=== PATIENT | female | born 2000 | race Caucasian/White ===

== ENCOUNTER 2023-08-17 16:06 | Emergency (ER) | payer OTHER ==
--- NOTE | 2023-08-17 16:30 | ED Physician Documentation ---
History of Present Illness - Stated complaint Stated Complaint: SYNCOPE/LOW BS - Chief complaint Chief Complaint: General - History obtained from History obtained from: Patient - Additonal information Additional information: She is a G2, P1 at 34 weeks of . High risk due to gestational diabetes although not on meds and congenital heart problems in the baby. She passed out twice today. Both episodes she had a short premonition of feeling poorly and then passed out. Neither involved in injury. She has had decreased motion but denies pelvic cramping or bleeding or fluid loss. No chest pain or trouble breathing. She checked her blood sugar and was in the 50s and ate some sugar containing food and now that is better. PD PAST MEDICAL HISTORY - Past Medical History Past Medical History: No Cardiovascular: None Respiratory: None Neuro: None Endocrine/Autoimmune: Other GI: None PRIMARY SUBSTANCE ABUSE COUNSELOR: None : None, Chronic bladder infection HEENT: None Psych: None Derm: None - Past Surgical History Past Surgical History: Yes General: Appendectomy - Allergies Allergies/Adverse Reactions: Allergies Allergy/AdvReac Type Severity Reaction Status Date / Time ciprofloxacin [From Cipro] Allergy Hives Verified 08/17/23 16:10 Sulfa (Sulfonamide Allergy Hives Verified 08/17/23 16:10 Antibiotics) - Social History Does the pt smoke?: No Smoking Status: Never smoker Does the pt drink ETOH?: No Does the pt have substance abuse?: No - Immunizations Immunizations are current?: Yes - POLST Patient has POLST: No PD ED PE NORMAL - Vitals Vital signs reviewed: Yes - General General: Alert and oriented X 3, No acute distress - Cardiac Cardiac: RRR, No murmur - Respiratory Respiratory: No respiratory distress, Clear bilaterally - Abdomen Abdomen: Normal bowel sounds, Soft, Non tender, Other (Gravid, heart rate 144 bedside ultrasound) - Neuro Neuro: Alert and oriented X 3 Results - Vitals Vitals: Vital Signs - 24 hr 08/17/23 08/17/23 08/17/23 16:10 16:17 16:40 Temperature 36.8 C 36.5 C Heart Rate 116 H 106 H 104 H Respiratory 16 20 18 Rate Blood Pressure 131/67 H 132/80 H 118/67 O2 Saturation 100 99 97 08/17/23 16:47 Temperature Heart Rate 104 H Respiratory 17 Rate Blood Pressure 114/73 O2 Saturation 98 Oxygen O2 Source Room air - EKG (time done) 1627 EKG releavant findings:: EKG personally interpreted by author of this note. Relevant findings are: Rate: Rate (enter#) (105) Rhythm: Sinus tachycardia [place]: Normal Intervals: Normal KS. No: Prolonged KS, Prolonged QT, Wide QRS, RBBB, LBBB QRS: Normal Ischemia: Non specific changes. No: ST elevation c/w ischemia, ST depression - Labs Labs: Laboratory Tests 08/17/23 08/17/23 08/17/23 16:12 16:19 16:19 WBC 12.2 H RBC 4.03 L Hgb 11.8 L Hct 36.2 L MCV 89.8 MCH 29.3 MCHC 32.6 RDW 13.8 Plt Count 263 MPV 10.3 Neut # (Auto) 8.7 H Lymph # (Auto) 2.3 Pender # (Auto) 0.9 Eos # (Auto) 0.1 Baso # (Auto) 0.0 Absolute Nucleated RBC 0.00 Nucleated RBC % 0.0 Sodium 136 Potassium 3.5 Chloride 104 Carbon Dioxide 24 Anion Gap 8.0 BUN 6 Creatinine 0.4 L Estimated GFR (MDRD) 200 Glucose 111 H POC Whole Bld Glucose 136 H Calcium 9.2 Magnesium 1.6 L Total Bilirubin 0.3 AST 11 ALT 10 Alkaline Phosphatase 110 Total Protein 6.1 L Albumin 3.5 Globulin 2.6 Albumin/Globulin Ratio 1.3 08/17/23 18:01 WBC RBC Hgb Hct MCV MCH MCHC RDW Plt Count MPV Neut # (Auto) Lymph # (Auto) Pender # (Auto) Eos # (Auto) Baso # (Auto) Absolute Nucleated RBC Nucleated RBC % Sodium Potassium Chloride Carbon Dioxide Anion Gap BUN Creatinine Estimated GFR (MDRD) Glucose POC Whole Bld Glucose 146 H Calcium Magnesium Total Bilirubin AST ALT Alkaline Phosphatase Total Protein Albumin Globulin Albumin/Globulin Ratio PD Medical Decision Making - ED course ED course: 22-year-old G2, P1 and 34 weeks presents with hypoglycemia and syncope. Labs were notable for mild leukocytosis and anemia, both expected in . She has mild hypomagnesemia. Her EKG is unremarkable without prolonged QT or findings of WPW etc. Case discussed by phone with Ashlie Deras and we agreed a couple of hours of observation is appropriate. at 35 weeks presents after syncopal episode. No shortness of breath or chest pain to suggest PE. No pedal edema. Her EKG is without concerning findings. CBC showing an expected leukocytosis and anemia which is normal in . Her blood sugar stayed up here and she received some IV magnesium unfortunately that did make her nauseous so we stopped it and changed to oral as her hypomagnesemia was only very mild. Her blood sugar stayed up here and on last check prior to discharge was 146. Departure - Departure Disposition: 01 Home, Self Care Clinical Impression: Syncope Qualifiers: Syncope type: unspecified Qualified Code(s): R55 - Syncope and collapse Qualifiers: Weeks of gestation: 35 weeks Qualified Code(s): Z3A.35 - 35 weeks gestation of Condition: Good Record reviewed to determine appropriate education?: Yes Instructions: ED Blood Sugar Low Non Diabetic Comments: You were seen today for passing out (syncope in the setting of . You are hypoglycemic which seems to have resolved at this point. We observed you for a few hours and your blood sugar stayed up. Eat small frequent meals that are heavy in carbohydrates. Call your doctor to arrange a follow-up appointment, make the next available appointment. In the interim, return anytime if worse or if new symptoms develop. Forms: PCP List
[2023-08-17 16:38] LABS: BASOPHILS % (AUTO) 0.2 %; EOSINOPHILS # (AUTO) 0.1 10^3/uL (0.0-0.7); EOSINOPHILS % (AUTO) 1.1 %; HCT - HEMATOCRIT 36.2 % (37.0-47.0); HGB - HEMOGLOBIN 11.8 g/dL (12.0-16.0); LYMPHOCYTES # (AUTO) 2.3 10^3/uL (1.5-3.5); LYMPHOCYTES % (AUTO) 18.9 %; MEAN CORPUSCULAR HEMOGLOBIN 29.3 pg (27.0-31.0); MEAN CORPUSCULAR HGB CONC 32.6 g/dL (32.0-36.0); MEAN CORPUSCULAR VOLUME 89.8 fL (81.0-99.0); MEAN PLATELET VOLUME 10.3 fL (7.9-10.8); MONOCYTES # (AUTO) 0.9 10^3/uL (0.0-1.0); MONOCYTES % (AUTO) 7.7 %; NEUTROPHILS # (AUTO) 8.7 10^3/uL (1.5-6.6); NEUTROPHILS % (AUTO) 71.4 %; PLT - PLATELET COUNT 263 10^3/uL (130-450); RED BLOOD COUNT 4.03 10^6/uL (4.20-5.40); RED CELL DISTRIBUTION WIDTH 13.8 % (12.0-15.0); WHITE BLOOD COUNT 12.2 x10^3/uL (4.8-10.8)
[2023-08-17 16:46] LABS: MAGNESIUM 1.6 mg/dL (1.7-2.3)
[2023-08-17 16:52] LABS: ALBUMIN 3.5 g/dL (3.2-5.5); ALBUMIN/GLOBULIN RATIO 1.3 (1.0-2.2); BILIRUBIN,TOTAL 0.3 mg/dL (0.2-1.0); CALCIUM 9.2 mg/dL (8.5-10.3); CREATININE 0.4 mg/dL (0.6-1.3); POTASSIUM 3.5 mmol/L (3.5-4.5); TOTAL PROTEIN 6.1 g/dL (6.4-8.9)
[2023-08-17] MEDS: SODIUM CHLORIDE 0.9% 1,000 ML IV STA (16:53)
[2023-08-17] MEDS: MAGNESIUM SULFATE 2 GRAM 2 GM/50 ML BAG IV ONE (17:27)
[2023-08-17] MEDS: MAGNESIUM OXIDE 400 MG TABLET PO STA (18:56)
[2023-08-17 19:14] VITALS: BP 124/81; O2SAT 99
--- NOTE | 2023-08-18 09:47 | PROCEDURE REPORT ---
- HPI Diagnosis/Indication for NST: Gestational Diabetes (Syncope evaluation in ED) Current 2 Para 1 Vital Signs Temperature 98.2 F 08/17/23 16:10 Heart Rate 116 H 08/17/23 16:10 Respiratory Rate 16 08/17/23 16:10 Blood Pressure 131/67 H 08/17/23 16:10 O2 Saturation 100 08/17/23 16:10 Temperature 97.9 F 08/17/23 19:12 Heart Rate 109 H 08/17/23 19:12 Respiratory Rate 18 08/17/23 19:12 Blood Pressure 124/81 H 08/17/23 19:12 O2 Saturation 99 08/17/23 19:12 If not protocol: Oxygen Flow, liters/minute - NST Procedure NST Procedure Start Date 08/17/23 Start Time 16:36 Stop Time 17:00 Vibroacoustic Stimulation Used No Patient States Movement Yes EFM: 120s, moderate variability, positive accelerations, one variable deceleration Tulsita: no contractions Cat 1/NST Reactive Performed and read 08/17/23 - Results and Plan Plan: 22yo at 34w with GDMA1, evaluated in ED for syncope - NST reactive - Follow up at her primary OB as scheduled
== END 2023-08-17 19:14 | disposition home or self-care (01) ==
LOC: ED 16:06
DX: O99.891 Other specified diseases and conditions complicating pregnancy (principal); R55 Syncope and collapse; E83.42 Hypomagnesemia; R11.0 Nausea; O24.419 Gestational diabetes mellitus in pregnancy, unspecified control; Z3A.35 35 weeks gestation of pregnancy
CPT/HCPCS: 36415; 80053; 83735; 85025; 93005; 96361; 96365; 96366; 99284; A9270

== ENCOUNTER 2023-10-19 21:40 | Emergency (ER) | payer OTHER ==
[2023-10-19 22:08] VITALS: O2SAT 99
[2023-10-19 23:12] LABS: BILIRUBIN,URINE NEGATIVE (NEGATIVE); GLUCOSE, URINE (UA) NEGATIVE (NEGATIVE); KETONES,URINE (UA) NEGATIVE (NEGATIVE); LEUKOCYTE ESTERASE, URINE NEGATIVE (NEGATIVE); NITRITE,URINE NEGATIVE (NEGATIVE); OCCULT BLOOD,URINE MODERATE (NEGATIVE); PH,URINE 6.5 PH (5.0-7.5); PROTEIN,URINE NEGATIVE (NEGATIVE); UROBILINOGEN,URINE 0.2 (NORMAL) E.U./dL (NORMAL)
[2023-10-19 23:25] LABS: BACTERIA,URINE None Seen /HPF (None Seen); CLARITY,URINE CLEAR (CLEAR); RBC,URINE TNTC /HPF (0-5); SQUAMOUS EPITHELIAL CELL,UR MANY Squamous (<= Few); WBC,URINE 0-3 /HPF (0-5)
[2023-10-19 23:26] LABS: HCG UR QUAL NEGATIVE
[2023-10-19] MEDS: ACETAMINOPHEN 325 MG TABLET PO STA (23:44)
--- NOTE | 2023-10-19 23:56 | ED Physician Documentation ---
History of Present Illness - Stated complaint Stated Complaint: - Chief complaint Chief Complaint: Abd Pain - History obtained from History obtained from: Patient - Additonal information Additional information: 23-year-old woman who is 6 weeks presents after passing a large blood clot through her vagina today and calling her OB who recommended to come in for ultrasound. Endorses cramping Intermittent pain. Patient believes she may be on her menses.Denies foul-smelling discharge or fever. PD PAST MEDICAL HISTORY - Past Medical History Past Medical History: Yes Cardiovascular: None Respiratory: None Neuro: None Endocrine/Autoimmune: Other GI: None BOILER OPERATOR: None : None, Chronic bladder infection HEENT: None Psych: None Musculoskeletal: None Derm: None - Past Surgical History Past Surgical History: Yes General: Appendectomy - Present Medications Home Medications: Ambulatory Orders Medication Instructions Recorded Confirmed No Known Home Medications 10/19/23 10/19/23 - Allergies Allergies/Adverse Reactions: Allergies Allergy/AdvReac Type Severity Reaction Status Date / Time ciprofloxacin [From Cipro] Allergy Hives Verified 10/19/23 22:05 Sulfa (Sulfonamide Allergy Hives Verified 10/19/23 22:05 Antibiotics) - Social History Does the pt smoke?: No Smoking Status: Never smoker Does the pt drink ETOH?: No Does the pt have substance abuse?: No - Immunizations Immunizations are current?: Yes - POLST Patient has POLST: No PD ED PE NORMAL - Vitals Vital signs reviewed: Yes - General General: Alert and oriented X 3, No acute distress, Well developed/nourished - HEENT HEENT: Atraumatic, PERRL, EOMI - Neck Neck: Supple, no meningeal sign - Cardiac Cardiac: RRR - Respiratory Respiratory: No respiratory distress, Clear bilaterally - Abdomen Abdomen: Non tender, Non distended - Derm Derm: Normal color, Warm and dry - Extremities Extremities: No deformity - Neuro Neuro: Alert and oriented X 3, No motor deficit, No sensory deficit Results - Vitals Vitals: Vital Signs - 24 hr 10/19/23 10/20/23 21:56 00:05 Temperature 36.4 C L 36.3 C L Heart Rate 103 H 97 Respiratory 14 16 Rate Blood Pressure 118/80 121/67 O2 Saturation 99 99 Oxygen O2 Source Room air - Labs Labs: Laboratory Tests 10/19/23 10/19/23 22:06 22:06 Urine Color YELLOW Urine Clarity CLEAR Urine pH 6.5 Ur Specific Campus 1.025 Urine Protein NEGATIVE Urine Glucose (UA) NEGATIVE Urine Ketones NEGATIVE Urine Occult Blood MODERATE H Urine Nitrite NEGATIVE Urine Bilirubin NEGATIVE Urine Urobilinogen 0.2 (NORMAL) Ur Leukocyte Esterase NEGATIVE Urine RBC TNTC H Urine WBC 0-3 Ur Squamous Epith Cells MANY Squamous H Urine Bacteria None Seen Urine Culture Comments NOT INDICATED Urine HCG, Qual NEGATIVE PD Medical Decision Making - ED course ED course: 23-year-old woman presents with lower abdominal cramping intermittent over the past couple of days and passage of a large blood clot from her vagina today. Her ultrasound of the uterus shows no retained products of conception and she is not endorsing fever or foul-smelling discharge therefore endometritis is unlikely. 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 Return precautions given. Departure - Departure Disposition: 01 Home, Self Care Clinical Impression: Vaginal bleeding Condition: Stable Instructions: Levonorgestrel intrauterine device IUD Comments: You were seen in the emergency department for medical evaluation. Your ultrasound was normal. Please follow-up with your global compensation manager routinely and return to the emergency department if you have any new or worsening symptoms or other concerns. Forms: PCP List Discharge Date/Time: 10/20/23 00:11
[2023-10-20 00:16] VITALS: BP 121/67
--- NOTE | 2023-10-20 01:35 | Ultrasound Report ---
PROCEDURE: Pelvic w/Transvaginal INDICATIONS: passed blood clot - 6weeks TECHNIQUE: Real-time scanning was performed of the pelvic organs, with image documentation. Additional endovagi nal scanning was necessary due to incomplete visualization of the adnexal and endometrial structures by transabdominal scanning. COMPARISON: None. FINDINGS: Uterus: Uterus is anteverted and normal in size at 8.2 x 6.7 x 4.8 cm. The myometrium is homogeneou s. The endometrium measures 4 mm in combined thickness. No fibroids seen. No intrauterine gestation al sac. Ovaries: The right ovary measures 2.7 x 2.4 x 1.2 cm, with a calculated ovarian volume of 4 cc. The left ovary measures 1.9 x 1.7 x 1.7 cm, with a calculated ovarian volume of 3 cc. The ovaries have a normal sonographic appearance. Less than 12 follicles can be seen in each ovary. No adnexal abiel s are seen. No cystic lesions measuring greater than 3 cm. Other: No pathologic free abdominal or pelvic fluid. IMPRESSION: No intrauterine gestational sac. Endometrium measures 4 mm. No significant ovarian cysts. Reviewed by: Harsha Quiñones MD on 10/20/2023 1:34 AM PDT Approved by: Harsha Quiñones MD on 10/20/2023 1:34 AM PDT Station ID: [id number]
== END 2023-10-20 00:11 | disposition home or self-care (01) ==
LOC: ED 21:40
DX: O72.1 Other immediate postpartum hemorrhage (principal)
CPT/HCPCS: 76830; 76856; 81001; 81025; 99283; 99284; A9270; 87086